=== PATIENT | male | born 1955 | race Caucasian/White ===

== ENCOUNTER 2020-09-25 14:04 | Inpatient (IN) ==
[2020-09-25] MEDS ORDERED: HYDROmorphone 2 MG/1 ML VIAL IV STA (14:36)
[2020-09-25] MEDS ORDERED: PANTOPRAZOLE 40 MG VIAL IV STA (14:36)
[2020-09-25] MEDS ORDERED: ONDANSETRON 4 MG/2 ML VIAL IV STA (14:36)
[2020-09-25] MEDS ORDERED: SODIUM CHLORIDE 0.9% 500 ML IV STA (14:36)
[2020-09-25 15:28] LABS: Basophils % 0.2 % (0.0-0.8); Eosinophils % 0.3 % (0.00-10.9); Hematocrit 32.6 VOL% (42.0-52.0); Hemoglobin 10.6 GM/DL (14.0-18.0); Immature Granulocytes % 0.5 %; Immature Granulocytes Absolute 0.05 #; Lymphocytes # 1.2 10*3/uL (1.4-4.0); Lymphocytes % 11.7 % (21.2-54.2); Mean Corpuscular HGB Conc 32.5 GM/DL (32-36); Mean Corpuscular Volume 103.2 FL (87-102); Mean Platelet Volume 10.5 FL (9.6-12.0); Monocytes % 4.1 % (1.7-12.7); Neutrophils % 83.2 % (38.7-73.9); Platelet Count 387 T/CUMM (130-400); Red Blood Count 3.16 MC/CUMM (3.8-5.5); Red Cell Distribution Width 15.4 % (9.3-17.3)
[2020-09-25 15:47] LABS: Alanine Aminotransferase < 9 U/L (16-61); Albumin 2.6 G/DL (3.4-5.0); Alkaline Phosphatase 86 U/L (45-117); Aspartate Amino Transferase 10 U/L (0-37); Blood Urea Nitrogen 15 MG/DL (7-18); Calcium 8.6 MG/DL (8.5-10.1); Carbon Dioxide 23 MMOL/L (21-32); Estimated Glom Filtration Rate 72 ML/MIN; Glucose 94 MG/DL (74-106); Osmolality,Calculated 270.1 MOS/KG (273-304); Potassium 4.1 MMOL/L (3.5-5.1); Sodium 135 MMOL/L (136-145); Total Protein 6.5 G/DL (6.4-8.2)
[2020-09-25 17:12] LABS: Bilirubin,Urine Negative (Negative); Blood, Urine Negative (Negative); Glucose,Urine (UA) Negative (Negative); Hyaline Casts,Urine 8 /LPF (0-3); Ketones,Urine Negative (Negative); Mucus,Urine Occasional /LPF (Occasional); Nitrite,Urine Negative (Negative); Protein,Urine Negative; RBC,Urine 1 /HPF (0-4); Urine Appearance CLEAR (Clear); Urine Color Yellow (Yellow); Urine Specific Gravity 1.032 (1.001-1.035); Urine Urobilinogen < 2.0 EU/DL (0.2-1.0)
[2020-09-25 17:36] LABS: Platelet Estimate Normal
[2020-09-25] MEDS ORDERED: DEXTROSE 50% 25 GM/50 ML VIAL IV PRN (18:05)
[2020-09-25] MEDS ORDERED: GLUCAGON 1 MG VIAL IM PRN (18:05)
[2020-09-25] MEDS: MORPHINE 4 MG/1 ML VIAL IV PRN (21:33)
[2020-09-26] MEDS: MORPHINE 4 MG/1 ML VIAL IV PRN ×4 (02:42→18:14)
[2020-09-26 05:36] LABS: PT Patient Result 11.3 SECS (10.5-12.0)
[2020-09-26 06:03] LABS: Calcium 8.2 MG/DL (8.5-10.1); Osmolality,Calculated 272.8 MOS/KG (273-304); Potassium 3.6 MMOL/L (3.5-5.1); Risk Ratio 4.8; Thyroid Stimulating Hormone 3.27 uIU/ml (0.358-3.74); VLDL CHOLESTEROL 21.4 MG/DL
[2020-09-26 07:58] LABS: Basophils # 0.1 10*3/uL (0.0-0.2); Basophils % 0.7 % (0.0-0.8); Eosinophils # 0.3 10*3/uL (0.0-0.87); Eosinophils % 3.2 % (0.00-10.9); Hematocrit 25.9 VOL% (42.0-52.0); Immature Granulocytes % 0.5 %; Immature Granulocytes Absolute 0.04 #; Lymphocytes # 1.9 10*3/uL (1.4-4.0); Lymphocytes % 22.1 % (21.2-54.2); Mean Corpuscular HGB Conc 32.4 GM/DL (32-36); Mean Corpuscular Volume 105.3 FL (87-102); Mean Platelet Volume 10.2 FL (9.6-12.0); Monocytes % 7.1 % (1.7-12.7); Neutrophils % 66.4 % (38.7-73.9); Platelet Count 361 T/CUMM (130-400); Red Cell Distribution Width 15.8 % (9.3-17.3); White Blood Count 8.7 T/CUMM (4-12)
[2020-09-26 07:59] LABS: Hemoglobin 8.4 GM/DL (14.0-18.0); Red Blood Count 2.46 MC/CUMM (3.8-5.5)
[2020-09-26] MEDS ORDERED: TISSUE ADHESIVE 1 EACH APPLICATOR TOP ONE (08:32)
[2020-09-26 09:29] LABS: Neutrophils,Peritoneal Fluid 79 %
[2020-09-26 09:30] LABS: RBC,Peritoneal Fluid > 100000 T/CUMM
[2020-09-26 11:34] LABS: % Iron Saturation 29.5 % (18-50)
[2020-09-26 11:36] LABS: Total Protein,Peritoneal Fluid 3.5 G/DL
[2020-09-26] MEDS: cefTRIAXone 1,000 MG in SODIUM CHLORIDE 0.9% 100 ML IV SCH (11:36)
[2020-09-26 12:02] LABS: Basophils % 0.5 % (0.0-0.8); Eosinophils # 0.2 10*3/uL (0.0-0.87); Eosinophils % 2.3 % (0.00-10.9); Immature Granulocytes % 0.4 %; Immature Granulocytes Absolute 0.03 #; Lymphocytes # 1.9 10*3/uL (1.4-4.0); Lymphocytes % 24.1 % (21.2-54.2); Mean Corpuscular HGB Conc 32.1 GM/DL (32-36); Mean Corpuscular Volume 106.5 FL (87-102); Mean Platelet Volume 9.5 FL (9.6-12.0); Monocytes % 6.1 % (1.7-12.7); Neutrophils % 66.6 % (38.7-73.9); Platelet Count 337 T/CUMM (130-400); Red Blood Count 2.63 MC/CUMM (3.8-5.5); Red Cell Distribution Width 15.9 % (9.3-17.3); White Blood Count 7.8 T/CUMM (4-12)
[2020-09-26 12:40] LABS: Folate 7.59 NG/ML (5.38-24.0); Vitamin B12 255 PG/ML (211-911)
[2020-09-26 13:02] LABS: Sedimentation Rate-Westergren 56 MM/HR (0-20)
[2020-09-26] MEDS: ONDANSETRON 4 MG/2 ML VIAL IV PRN (18:13)
[2020-09-27] MEDS: MORPHINE 4 MG/1 ML VIAL IV PRN ×3 (00:06→12:30)
[2020-09-27] MEDS: ONDANSETRON 4 MG/2 ML VIAL IV PRN ×3 (00:06→12:29)
[2020-09-27 05:15] LABS: Basophils % 0.5 % (0.0-0.8); Eosinophils # 0.5 10*3/uL (0.0-0.87); Eosinophils % 7.3 % (0.00-10.9); Hematocrit 24.9 VOL% (42.0-52.0); Hemoglobin 7.9 GM/DL (14.0-18.0); Immature Granulocytes % 0.5 %; Immature Granulocytes Absolute 0.04 #; Lymphocytes # 1.7 10*3/uL (1.4-4.0); Lymphocytes % 23.5 % (21.2-54.2); Mean Corpuscular HGB Conc 31.7 GM/DL (32-36); Mean Corpuscular Volume 107.3 FL (87-102); Mean Platelet Volume 9.8 FL (9.6-12.0); Monocytes % 9.2 % (1.7-12.7); Platelet Count 281 T/CUMM (130-400); Red Blood Count 2.32 MC/CUMM (3.8-5.5); Red Cell Distribution Width 15.8 % (9.3-17.3); White Blood Count 7.4 T/CUMM (4-12)
[2020-09-27 05:44] LABS: Alanine Aminotransferase < 6 U/L (16-61); Albumin 1.8 G/DL (3.4-5.0); Alkaline Phosphatase 57 U/L (45-117); Aspartate Amino Transferase 6 U/L (0-37); Blood Urea Nitrogen 14 MG/DL (7-18); Calcium 7.5 MG/DL (8.5-10.1); Carbon Dioxide 25 MMOL/L (21-32); Estimated Glom Filtration Rate 105 ML/MIN; Glucose 75 MG/DL (74-106); Potassium 3.5 MMOL/L (3.5-5.1); Sodium 136 MMOL/L (136-145); Total Protein 4.5 G/DL (6.4-8.2)
[2020-09-27 09:49] LABS: Hemoglobin A1 (Alkaline) 98.3 % (96.5-98.5); Hemoglobin A2 (Alkaline) 1.7 % (1.5-3.5)
[2020-09-27 11:18] VITALS: BP 115/61
[2020-09-27] MEDS: cefTRIAXone 1,000 MG in SODIUM CHLORIDE 0.9% 100 ML IV SCH (12:02)
== END 2020-09-27 15:18 | disposition home or self-care (01) | DRG 432 ==
LOC: N.ED 14:04 → N.EDINP 18:05 → N.3E 19:50
PROVIDERS: ADMIT Internal Medicine; ATTEND Internal Medicine